=== PATIENT | male | born 1970 | race Caucasian/White ===

== ENCOUNTER → 2017-04-16 | Outpatient (CLI) | payer OTHER ==
[~2017-04-16] MED LIST: ACYCLOVIR800 MG PO; FLOMAX0.4 MG PO; GLUCOPHAGE500 MG PO; NORCO 5/3251 TABLET PO; PERCOCET 5/31 TABLET PO; PROMETHAZINE HC25 M1 PO; ZANTAC150 MG PO; ZESTORETIC 20-1 EAC1 PO
== END | disposition home or self-care (01) ==
LOC: CDC 12:20
DX: K43.2 Incisional hernia without obstruction or gangrene (principal); R94.31 Abnormal electrocardiogram [ECG] [EKG]
CPT/HCPCS: 93000

== ENCOUNTER 2017-04-21 05:27 | Day surgery (SDC) | payer OTHER ==
[~2017-04-21] VITALS: Ht 177.8 cm; Wt 120.4 kg
[2017-04-21 05:55] VITALS: BP 130/84
[2017-04-21 06:29] LABS: POINT-OF-CARE METER ID UU13113694
[2017-04-21] MEDS ORDERED: PERCOCET 5/31 TABLET PO (10:01)
[2017-04-21 12:09] LABS: POINT-OF-CARE METER ID UU13113675
[2017-04-21 12:25] VITALS: BP 132/75
[2017-04-21 13:16] VITALS: BP 125/82
[2017-04-21 13:40] VITALS: BP 139/83
== END 2017-04-21 13:45 | disposition home or self-care (01) ==
LOC: SDC 05:27
PROVIDERS: Surgery
PROC: 0WUF4JZ Supplement Abdominal Wall with Synthetic Substitute, Percutaneous Endoscopic Approach (ICD-10-PCS; principal; 2017-04-21)
DX: K43.0 Incisional hernia with obstruction, without gangrene (principal); E66.9 Obesity, unspecified; Z68.38 Body mass index [BMI] 38.0-38.9, adult; I10 Essential (primary) hypertension; Z82.49 Family history of ischemic heart disease and other diseases of the circulatory system; F17.210 Nicotine dependence, cigarettes, uncomplicated
CPT/HCPCS: 82948; C1781; J0131; J0330; J1170; J1885; J2250; J2405; J3010